=== PATIENT | male | born 1940 | race Caucasian/White ===

== ENCOUNTER → 2024-02-14 07:15 | Outpatient (REF) | payer MEDICARE, BC, SELFPAY ==
[2024-02-14 08:42] LABS: Hematocrit 50.9 % (39.0-52.0); Hemoglobin 17.9 g/dL (13.0-18.0); Mean Corp Hgb Conc. 35.2 g/dL (33.0-37.0); Mean Corpuscular Hgb 34.3 pg (27.0-31.0); Mean Corpuscular Volume 97.5 fL (80.0-94.0); Mean Platelet Volume 10.8 fL (7.4-10.4); Platelet Count 207 10^3/uL (130-400); Red Blood Cell Count 5.22 10^6/uL (4.70-6.10); Red Cell Dist. Width 12.3 % (11.5-14.5); White Blood Cell Count 9.8 10^3/uL (4.8-10.8)
[2024-02-14 09:09] LABS: Blood Urea Nitrogen 14 mg/dl (9-20); Calcium 9.3 mg/dl (8.4-10.2); Carbon Dioxide 25 mmol/L (22-30); Chloride 98 mmol/L (98-107); Glucose 113 mg/dl (70-99); Potassium 4.7 mmol/L (3.5-5.1); Sodium 134 mmol/L (135-145); eGFR > 60.00
== END ==
LOC: SDSPAT 07:15
PROVIDERS: ATTENDING PHYSICIAN Otolaryngology; FAMILY PHYSICIAN Family Medicine
DX: Z01.818 Encounter for other preprocedural examination (principal)
CPT/HCPCS: 80048; 85027; 93005

== ENCOUNTER 2024-02-17 06:34 | Day surgery (SDC) | payer MEDICARE, BC, SELFPAY ==
--- NOTE | 2024-02-15 09:08 | PTCARENOTE ---
Abn ECG, Dr. Tucker notified, 'ok if stable', no requests made.
[2024-02-15 10:56] VITALS: BMI 25.3
[2024-02-17] VITALS (8 sets, daily range): BP systolic 111–176; BP diastolic 70–106; BMI 25.3
== END 2024-02-17 15:48 | disposition home or self-care (01) ==
LOC: SDS 06:34
PROVIDERS: ATTENDING PHYSICIAN Otolaryngology; FAMILY PHYSICIAN Family Medicine
DX: D38.0 Neoplasm of uncertain behavior of larynx (principal); J38.7 Other diseases of larynx; R49.0 Dysphonia; J38.3 Other diseases of vocal cords; R23.4 Changes in skin texture
CPT/HCPCS: 31540; 88305; 88312; 88341; 88342; 88365

== ENCOUNTER → 2024-03-02 15:43 | Outpatient (REF) | payer MEDICARE, BC, SELFPAY | LOC: RCS 15:43 | PROVIDERS: ATTENDING PHYSICIAN Internal Medicine Cardiovascular Disease; FAMILY PHYSICIAN Family Medicine | DX: I45.10 Unspecified right bundle-branch block (principal) | CPT/HCPCS: 93306 ==

== ENCOUNTER → 2024-03-28 13:29 | Outpatient (REF) | payer MEDICARE, BC, SELFPAY | LOC: RAD 13:29 | PROVIDERS: ATTENDING PHYSICIAN Internal Medicine Critical Care Medicine; FAMILY PHYSICIAN Family Medicine | DX: J43.2 Centrilobular emphysema (principal) | CPT/HCPCS: 71046 ==

== ENCOUNTER 2024-12-22 16:35 | Emergency (ER) | payer MEDICARE, BC, SELFPAY ==
[2024-12-22 16:49] VITALS: BP 142/95
--- NOTE | 2024-12-22 17:49 | ED.SKININJ ---
HPI-Injury
General
Chief Complaint: Skin Surface Trauma
Source: patient
Exam Limitations: none
Time Seen by Provider: 12/22/24 17:43
History of Present Illness-Injury
Initial Injury comments:
84-year-old male with laceration/skin tear to anterior left martinez he sustained today. He scraped his martinez up against a piece of metal. Last tetanus unknown. He is not anticoagulated. He has been ambulatory. No numbness or loss of function. No
other complaints
Past History
Past History
ED Past Medical History: Hypercholesterolemia
ED Past Surgical History: None
Social History
Tobacco: Non-smoker
Alcohol: None
Drug: None
Phy Exam
Physical Exam
Physical Exam:
General: Well-appearing male no acute respiratory distress
HEENT: Normocephalic atraumatic
Skin: Large skin tear measuring 10 cm in total length over the anterior left martinez. This is flap in nature. No significant bleeding currently
Musculoskeletal exam: The knee and ankle are nontender. The martinez is nontender without deformity
Vascular: 2+ DP pulse left foot
Course
Orders/Labs/Results
Orders:
Orders
12/22/24 17:48
Tetanus/Diphth/Acelpertussis [Adacel] 0.5 ml IM .ONCE ONE
Vital Signs
Initial and Last Documented VS:
Initial Vital Signs
Temp Pulse Resp BP Pulse Ox
98.5 F 92 18 142/95 95
12/22/24 16:49 12/22/24 16:49 12/22/24 16:49 12/22/24 16:49 12/22/24 16:49
Last Documented Vital Signs
Temp Pulse Resp BP Pulse Ox
98.5 F 92 18 142/95 95
12/22/24 16:49 12/22/24 16:49 12/22/24 16:49 12/22/24 16:49 12/22/24 16:49
MDM/Problems Addressed
Differential Diagnosis Includes:
Skin tear/laceration left martinez. There are parts of the wound that look amenable to sutures. Will irrigate with saline anesthetized and attempted closed with sutures
*Critical Care Note
Total Time (30-74mins, 75-104mins- exclusive of procedures): Not Applicable
Update Note
Update Note:
The wound was closed with 4-0 Prolene sutures. Simple erupted sutures were performed in the areas of the wound that required and were amenable to sutures. The corner of the wound where the skin was too thin was left to heal by secondary intent. A
dressing was applied. Tetanus updated. Will start on antibiotics
ED Attending Note
-
Portions of this chart may have been created with voice recognition software.� Occasional wrong word or��sound alike� substitutions may have occurred due to the inherent limitations of voice recognition software.
Discharge Plan
Departure
Patient Disposition: Home (Routine Discharge)
Date of Disposition: 12/22/24
Time of Disposition: 18:54
Patient with high blood pressure during this ER visit?: No
Discharge Problem:
Laceration
Instructions: Wound Care (DC), Laceration Repair With Stitches (DC)
Prescriptions:
New
cephalexin 500 mg capsule
500 mg PO TID 7 Days Qty: 21 0RF
No Action
simvastatin
1 tab PO HS
ascorbic acid (vitamin C) [Vitamin C] 500 mg Tablet
1 mg PO DAILY
Vitamin D3
1 dose PO DAILY
vitamin E 1,000 unit Tablet
1 tab PO .WEEKLY
Referrals:
NONE,* [Family Provider, Internal Medicine]
Activity Restrictions/Additional Instructions:
The sutures need to be removed in 2 weeks. Some of the wound was not able to be closed with sutures given the integrity of the skin. Take antibiotics as directed. Change dressing daily
Interventions
Interventions:
*Risk Screen - Suicide Last Done: 12/22/24 16:50
*General Assessment Last Done: 12/22/24 16:50
*Neglect/Abuse Screening Last Done: 12/22/24 16:50
*ED COVID-19 Vaccine History Last Done: 12/22/24 16:51
ED-Skin Assessment Last Done: 12/22/24 17:46
Discharge Date and Time
Print Language: SOMALI
[2024-12-22] MEDS: ADACEL 0.5 ML IM (18:48)
== END 2024-12-22 19:25 | disposition home or self-care (01) ==
LOC: EMR 16:35
PROVIDERS: EMERGENCY PHYSICIAN Emergency Medicine; FAMILY PHYSICIAN Family Medicine
DX: S81.812A Laceration without foreign body, left lower leg, initial encounter (principal); X58.XXXA Exposure to other specified factors, initial encounter; Z23 Encounter for immunization; E78.00 Pure hypercholesterolemia, unspecified
CPT/HCPCS: 99282; 12001; 90471; 90715

== ENCOUNTER → 2025-02-14 12:52 | Outpatient (REF) | payer MEDICARE, BC, SELFPAY | LOC: HWRAD 12:52 | PROVIDERS: ATTENDING PHYSICIAN Internal Medicine Critical Care Medicine; FAMILY PHYSICIAN Family Medicine | DX: J84.9 Interstitial pulmonary disease, unspecified (principal) | CPT/HCPCS: 71250 ==

== ENCOUNTER 2025-05-08 09:26 | Outpatient (RCR) | payer MEDICARE, BC, SELFPAY | END 2025-05-08 23:59 | disposition home or self-care (01) | LOC: RST 09:26 | PROVIDERS: ATTENDING PHYSICIAN Family Medicine | DX: G31.84 Mild cognitive impairment of uncertain or unknown etiology (principal); R41.840 Attention and concentration deficit; R41.89 Other symptoms and signs involving cognitive functions and awareness; R41.844 Frontal lobe and executive function deficit | CPT/HCPCS: 96125; 97129; 97130 ==

== ENCOUNTER 2025-06-08 08:07 | Outpatient (RCR) | payer MEDICARE, BC, SELFPAY | END 2025-06-08 23:59 | disposition home or self-care (01) | LOC: RST 08:07 | PROVIDERS: ATTENDING PHYSICIAN Family Medicine | DX: G31.84 Mild cognitive impairment of uncertain or unknown etiology (principal); R41.840 Attention and concentration deficit; R41.89 Other symptoms and signs involving cognitive functions and awareness; R41.844 Frontal lobe and executive function deficit | CPT/HCPCS: 97129; 97130; 97550; 97551 ==

== ENCOUNTER 2025-06-25 08:15 | Outpatient (RCR) | payer MEDICARE, BC, SELFPAY | END 2025-06-25 23:59 | disposition home or self-care (01) | LOC: RST 08:15 | PROVIDERS: ATTENDING PHYSICIAN Family Medicine | DX: G31.84 Mild cognitive impairment of uncertain or unknown etiology (principal); R41.840 Attention and concentration deficit; R41.89 Other symptoms and signs involving cognitive functions and awareness; R41.844 Frontal lobe and executive function deficit | CPT/HCPCS: 97550; 97551 ==